=== PATIENT | female | born 1980 | race African-American/Black ===

== ENCOUNTER 2020-01-10 15:20 | Inpatient (IN) | payer MEDICAID, OTHER ==
[~2020-01-10] VITALS: Ht 172.7 cm; Wt 107.0 kg
[~2020-01-10 15:20] MED LIST: BACL20TA; FERR-63 PO; FING0.5C3; PROT40 PO; SENN8.6C5 PO; SUCR1TAB PO; WARF5TAB76; [UNRECOGNIZED DRUG - OTHER]
[2020-01-10 16:26] LABS: MEAN CORPUSCULAR HEMOGLOBIN 18.1 pg (28.0-32.0); MEAN CORPUSCULAR VOLUME 60.4 fL (81.0-99.0); PLATELET 642 x1000/uL (130-400); RED BLOOD CELL COUNT 3.04 mill/uL (4.2-5.4); RED CELL DISTRIBUTION WIDTH 24.3 % (11.6-14.6)
[2020-01-10 16:30] LABS: CHLORIDE 106 mEq/L (98-107)
[2020-01-10 16:33] LABS: HEMOGLOBIN. 5.5 g/dL (12.0-16.0); INR 1.3; PROTHROMBIN TIME 13.1 sec (9.6-11.0)
[2020-01-10 16:34] LABS: HEMATOCRIT. 18.4 % (36.0-48.0)
[2020-01-10 16:35] LABS: ETHANOL BLOOD < 10 mg/dL
[2020-01-10 16:36] LABS: TOTAL IRON BINDING CAPACITY 249 ug/dL (250-450)
[2020-01-10 16:44] LABS: HCG SCREEN NEGATIVE
[2020-01-10 16:59] LABS: PLATELET ESTIMATE INCREASED
[2020-01-10] MEDS ORDERED: HYDROCODONE/ACETAMINOPHEN 5/325MG TABLET PO ONE (17:30)
[2020-01-10] MEDS ORDERED: ONDANSETRON HCL 4MG/2ML INJ IV ONE (17:30)
[2020-01-10] MEDS ORDERED: SODIUM CHLORIDE 0.9% 1,000 ML IV ONE (17:30)
[2020-01-10] MEDS ORDERED: ONDANSETRON HCL 4MG/2ML INJ IV PRN (18:30)
[2020-01-10] MEDS ORDERED: DIPHENHYDRAMINE 50MG/ML VIAL IV PRN (18:30)
[2020-01-10] MEDS ORDERED: CLONIDINE 0.1MG TABLET PO PRN (18:30)
[2020-01-10 19:04] LABS: PHOSPHORUS 2.9 mg/dL (2.5-4.9)
[2020-01-11] VITALS (7 sets, daily range): BP systolic 117–156; BP diastolic 55–81
[2020-01-11] MEDS ORDERED: CHOL200059 PO (02:37)
[2020-01-11] MEDS ORDERED: AMIT25TA9 PO (02:37)
[2020-01-11] MEDS ORDERED: RIVA20TA PO (02:37)
[2020-01-11] MEDS ORDERED: GABA-529 PO (02:37)
[2020-01-11] MEDS: ACETAMINOPHEN 325MG TABLET PO PRN (04:57)
[2020-01-11] MEDS: FERROUS SULFATE 325MG TABLET PO SCH ×2 (09:19→12:47)
[2020-01-11 10:15] LABS: CHLORIDE 105 mEq/L (98-107)
[2020-01-11 10:16] LABS: HEMOGLOBIN. 8.7 g/dL (12.0-16.0); MEAN CORPUSCULAR HEMOGLOBIN 21.2 pg (28.0-32.0); MEAN CORPUSCULAR VOLUME 68.1 fL (81.0-99.0); PLATELET 670 x1000/uL (130-400); RED BLOOD CELL COUNT 4.11 mill/uL (4.2-5.4)
[2020-01-11] MEDS ORDERED: LIDOCAINE HCL 1% 20ML VIAL (Pyxis) INJ INFIL SCH (10:19)
[2020-01-11 10:22] LABS: LDL CHOLESTEROL 106 mg/dL (5-100)
[2020-01-11 10:24] LABS: HDL CHOLESTEROL 69 mg/dL (40-59)
[2020-01-11 11:50] LABS: NUCLEATED RED BLOOD CELLS 1 /100 WBC; PLATELET ESTIMATE INCREASED
[2020-01-11] MEDS ORDERED: BACITRACIN 15GM TUBE TOP ONE (11:54)
[2020-01-11] MEDS: PANTOPRAZOLE SODIUM 40 MG/VIAL IV SCH ×2 (13:30→21:40)
[2020-01-11] MEDS ORDERED: OXYBUTYNIN CHLORIDE 5MG TABLET PO PRN (13:30)
[2020-01-11] MEDS: SODIUM HYPOCHLORITE 0.125% 473ML SOLUTION TOP SCH (16:08)
[2020-01-11] MEDS: GILENYA 0.5 MG PO SCH (16:08)
[2020-01-11] MEDS: BACLOFEN 10MG TABLET PO SCH (16:16)
[2020-01-11] MEDS: GABAPENTIN 100MG CAPSULE PO SCH (16:16)
[2020-01-11 17:28] LABS: HAPTOGLOBIN 330 mg/dL (30-200)
[2020-01-11 17:47] LABS: FOLIC ACID (FOLATE) SERUM 7.1 ng/mL (>5.38)
[2020-01-11] MEDS: IRON SUCROSE COMPLEX 100 MG/5 ML ML IV SCH (17:52)
[2020-01-11] MEDS: AMITRIPTYLINE 25MG TABLET PO SCH (21:39)
[2020-01-11 22:02] LABS: HEMATOCRIT 29.1 % (36.0-48.0); HEMOGLOBIN 9.1 g/dL (12.0-16.0); MEAN CORPUSCULAR HEMOGLOBIN 21.5 pg (28.0-32.0); MEAN CORPUSCULAR VOLUME 68.8 fL (81.0-99.0); PLATELET 633 x1000/uL (130-400); RED BLOOD CELL COUNT 4.23 mill/uL (4.2-5.4); RED CELL DISTRIBUTION WIDTH 32.4 % (11.6-14.6)
[2020-01-12] VITALS (7 sets, daily range): BP systolic 138–177; BP diastolic 64–89
[2020-01-12] MEDS: ACETAMINOPHEN 325MG TABLET PO PRN (00:19)
[2020-01-12] MEDS: GILENYA 0.5 MG PO SCH (08:52)
[2020-01-12] MEDS: AMLODIPINE 5MG TABLET PO SCH (08:59)
[2020-01-12] MEDS: GABAPENTIN 100MG CAPSULE PO SCH ×3 (08:59→16:54)
[2020-01-12] MEDS: BACLOFEN 10MG TABLET PO SCH ×3 (08:59→16:54)
[2020-01-12] MEDS: PANTOPRAZOLE SODIUM 40 MG/VIAL IV SCH ×2 (08:59→21:11)
[2020-01-12] MEDS: SODIUM HYPOCHLORITE 0.125% 473ML SOLUTION TOP SCH (08:59)
[2020-01-12] MEDS: IRON SUCROSE COMPLEX 100 MG/5 ML ML IV SCH (16:53)
[2020-01-12] MEDS: DOCUSATE SODIUM 250MG CAPSULE PO SCH (16:54)
[2020-01-12] MEDS ORDERED: DOCUSATE SODIUM 100MG CAPSULE PO SCH (17:00)
[2020-01-12] MEDS: AMITRIPTYLINE 25MG TABLET PO SCH (21:11)
[2020-01-13] VITALS: BP 141/71
[2020-01-13 04:00] VITALS: BP 140/69
[2020-01-13] MEDS ORDERED: POTASSIUM CHLORIDE 20MEQ TABLET SR PO SCH (07:00)
[2020-01-13] MEDS ORDERED: DEXT 5%/0.9% NACL 1,000 ML IV SCH (07:00)
[2020-01-13 07:21] LABS: HEMATOCRIT. 29.5 % (36.0-48.0); HEMOGLOBIN. 9.4 g/dL (12.0-16.0); MEAN CORPUSCULAR HEMOGLOBIN 22.1 pg (28.0-32.0); MEAN CORPUSCULAR VOLUME 69.6 fL (81.0-99.0); MEAN PLATELET VOLUME 8.4 fl (7.4-10.4); PLATELET 637 x1000/uL (130-400); RED BLOOD CELL COUNT 4.24 mill/uL (4.2-5.4); RED CELL DISTRIBUTION WIDTH 32.3 % (11.6-14.6)
[2020-01-13 07:30] LABS: CHLORIDE 103 mEq/L (98-107)
[2020-01-13 08:00] VITALS: BP 168/74
[2020-01-13] MEDS: GILENYA 0.5 MG PO SCH (09:00)
[2020-01-13] MEDS: GABAPENTIN 100MG CAPSULE PO SCH ×2 (09:17→14:24)
[2020-01-13] MEDS: PANTOPRAZOLE SODIUM 40 MG/VIAL IV SCH (09:17)
[2020-01-13] MEDS: DOCUSATE SODIUM 250MG CAPSULE PO SCH (09:17)
[2020-01-13] MEDS: SODIUM HYPOCHLORITE 0.125% 473ML SOLUTION TOP SCH (09:18)
[2020-01-13] MEDS: BACLOFEN 10MG TABLET PO SCH ×2 (09:18→14:23)
[2020-01-13] MEDS: AMLODIPINE 5MG TABLET PO SCH (09:18)
[2020-01-13 12:00] VITALS: BP 156/73
[2020-01-13] MEDS ORDERED: AMLO10TA80 MT (12:28)
[2020-01-13 12:32] LABS: NUCLEATED RED BLOOD CELLS 2 /100 WBC
[2020-01-13 12:33] LABS: PLATELET ESTIMATE INCREASED
[2020-01-13 14:33] VITALS: BP 145/70
[2020-01-13] MEDS ORDERED: FAMOTIDINE 20MG/2ML VIAL IV SCH (21:00)
== END 2020-01-13 15:15 | disposition home or self-care (01) | DRG 532 ==
LOC: ER 15:20 → 5WST 17:10 → EDBEDREQTM 17:13 → EDBEDREQ 17:13 → ENRESERV 21:08
PROVIDERS: ADMIT Internal Medicine; ATTEND Internal Medicine
PROC: 30233N1 Transfusion of Nonautologous Red Blood Cells into Peripheral Vein, Percutaneous Approach (ICD-10-PCS; 2020-01-10)
PROC: 0HDRXZZ Extraction of Toe Nail, External Approach (ICD-10-PCS; principal; 2020-01-11)
PROC: 0HDRXZZ Extraction of Toe Nail, External Approach (ICD-10-PCS; 2020-01-11)
DX: N93.9 Abnormal uterine and vaginal bleeding, unspecified (principal); L03.032 Cellulitis of left toe; L03.031 Cellulitis of right toe; I10 Essential (primary) hypertension; D50.0 Iron deficiency anemia secondary to blood loss (chronic); E46 Unspecified protein-calorie malnutrition; L89.154 Pressure ulcer of sacral region, stage 4; G35 Multiple sclerosis; L60.0 Ingrowing nail; D47.3 Essential (hemorrhagic) thrombocythemia; D25.9 Leiomyoma of uterus, unspecified; Z20.828 Contact with and (suspected) exposure to other viral communicable diseases; E88.09 Other disorders of plasma-protein metabolism, not elsewhere classified; N83.201 Unspecified ovarian cyst, right side; D72.810 Lymphocytopenia; Z86.711 Personal history of pulmonary embolism; Z79.899 Other long term (current) drug therapy; Z88.6 Allergy status to analgesic agent; Z79.01 Long term (current) use of anticoagulants; Z68.35 Body mass index [BMI] 35.0-35.9, adult
CPT/HCPCS: 36415; 71045; 76830; 76856; 80048; 80053; 80061; 80320; 82040; 82270; 82607; 82728; 82746; 83010; 83540; 83550; 83615; 83735; 83880; 84100; 84134; 84145; 84443; 84484; 84703; 85025; 85027; 85044; 86850; 86900; 86920; 87426; 93005; 93970; 99291; C9113; J2405; J3490; J7030; J7042; P9016; G0480

== ENCOUNTER 2020-02-23 00:52 | Emergency (ER) | payer MEDICAID ==
[~2020-02-23] VITALS: Ht 165.1 cm; Wt 113.0 kg
[~2020-02-23 00:52] MED LIST changes: +AMIT25TA9 PO; +AMLO10TA80 MT; +CHOL200059 PO; +GABA-529 PO; +RIVA20TA PO; -WARF5TAB76
[2020-02-23 05:12] VITALS: BP 121/56
== END 2020-02-23 05:13 | disposition home or self-care (01) ==
LOC: ER 00:52
DX: T40.7X1A Poisoning by cannabis (derivatives), accidental (unintentional), initial encounter (principal); Y92.9 Unspecified place or not applicable; Z86.711 Personal history of pulmonary embolism; G35 Multiple sclerosis; Z88.6 Allergy status to analgesic agent; Z93.3 Colostomy status
CPT/HCPCS: 82962; 93005; 99283; Z7610

== ENCOUNTER 2020-06-11 06:45 | Inpatient (IN) | payer MEDICAID ==
[~2020-06-11] VITALS: Ht 167.6 cm; Wt 100.2 kg
[2020-06-11] MEDS ORDERED: PIPERACILLIN/TAZ 3.375G PREMIX 50 ML IV ONE (07:00)
[2020-06-11] MEDS ORDERED: SODIUM CHLORIDE 0.9% 1,000 ML IV ONE (07:00)
[2020-06-11] MEDS ORDERED: VANCOMYCIN 1 G PREMIX 200 ML IV ONE (07:00)
[2020-06-11 08:03] LABS: CHLORIDE 87 mEq/L (98-107); CLARITY URINE CLOUDY (CLEAR); COLOR URINE DARK YELLOW (YELLOW); HEMATOCRIT. 27.8 % (36.0-48.0); HEMOGLOBIN. 8.5 g/dL (12.0-16.0); KETONES URINE TRACE (NEGATIVE); LEUKOCYTE ESTERASE URINE 2+ (NEGATIVE); MEAN CORPUSCULAR VOLUME 68.9 fL (81.0-99.0); MEAN PLATELET VOLUME 8.2 fl (7.4-10.4); NITRITE URINE NEGATIVE (NEGATIVE); OCCULT BLOOD URINE TRACE (NEGATIVE); PLATELET 578 x1000/uL (130-400); PROTEIN URINE 2+ (NEGATIVE); RED BLOOD CELL COUNT 4.04 mill/uL (4.2-5.4); RED CELL DISTRIBUTION WIDTH 28.6 % (11.6-14.6); SPECIFIC GRAVITY URINE 1.024 (1.005-1.030)
[2020-06-11 08:57] LABS: INR 1.2; PROTHROMBIN TIME 12.4 sec (9.6-11.0)
[2020-06-11 10:59] LABS: PLATELET ESTIMATE INCREASED
[2020-06-11 14:00] VITALS: BP 106/81
[2020-06-11] MEDS ORDERED: MAGNESIUM/ALUMINUM HYDROXIDE/SIMETHICONE 30ML UDC PO PRN (14:15)
[2020-06-11] MEDS ORDERED: KETOROLAC 15MG/ML VIAL IV PRN (14:15)
[2020-06-11] MEDS ORDERED: IPRATROPIUM/ALBUTEROL 0.5-3(2.5)MG/3ML NEB NEB PRN (14:15)
[2020-06-11] MEDS ORDERED: DOCUSATE SODIUM 100MG CAPSULE PO PRN (14:15)
[2020-06-11] MEDS ORDERED: GUAIFENESIN 200MG/10ML SUGAR FREE UDC PO PRN (14:15)
[2020-06-11] MEDS ORDERED: PIPERACILLIN/TAZ 3.375G PREMIX 50 ML IV SCH (14:15)
[2020-06-11] MEDS ORDERED: TRAMADOL 50MG TABLET PO PRN (14:15)
[2020-06-11] MEDS: DEXT 5%/0.45% NACL 1000ML 1,000 ML IV SCH (14:15)
[2020-06-11] MEDS ORDERED: ACETAMINOPHEN 325MG TABLET PO PRN (14:15)
[2020-06-11] MEDS ORDERED: NITROGLYCERIN 0.4MG TABLET SL SL PRN (14:15)
[2020-06-11] MEDS ORDERED: CLONIDINE 0.1MG TABLET PO PRN (14:15)
[2020-06-11] MEDS ORDERED: ONDANSETRON HCL 4MG/2ML INJ IV PRN (14:15)
[2020-06-11 16:00] VITALS: BP 111/61
[2020-06-11 16:31] LABS: FOLIC ACID (FOLATE) SERUM >20 ng/mL ng/mL (>5.38)
[2020-06-11 16:43] LABS: VITAMIN B12 SERUM >2000 pg/mL pg/mL (211-911)
[2020-06-11] MEDS: VANCOMYCIN 750 MG PREMIX 150 ML IV SCH (17:46)
[2020-06-11] MEDS: PIPERACILLIN/TAZOBACTAM 3.375 G in DEXT 5% WATER 100 ML IV SCH ×2 (17:46→21:41)
[2020-06-11] MEDS: ENOXAPARIN 30MG/0.3ML SYR SUBCUT SCH (17:55)
[2020-06-11 18:00] VITALS: BP 110/69
[2020-06-11 18:14] VITALS: BP 106/81
[2020-06-11 20:00] VITALS: BP 125/70
[2020-06-11] MEDS: ASCORBIC ACID 500 MG TABLET PO SCH (21:36)
[2020-06-11] MEDS: FAMOTIDINE 20MG TABLET PO SCH (21:37)
[2020-06-11 22:00] VITALS: BP 124/82
[2020-06-12] VITALS (12 sets, daily range): BP systolic 109–132; BP diastolic 61–86
[2020-06-12] MEDS: VANCOMYCIN 750 MG PREMIX 150 ML IV SCH ×2 (00:27→08:29)
[2020-06-12] MEDS: DEXT 5%/0.45% NACL 1000ML 1,000 ML IV SCH ×3 (00:27→21:03)
[2020-06-12 01:27] LABS: CREATINE KINASE 21 IU/L (26-192)
[2020-06-12 01:28] LABS: CREATINE KINASE MB FRACTION < 1.0 ng/mL (0.5-3.6)
[2020-06-12] MEDS: PIPERACILLIN/TAZOBACTAM 3.375 G in DEXT 5% WATER 100 ML IV SCH ×4 (04:00→22:29)
[2020-06-12] MEDS: ENOXAPARIN 30MG/0.3ML SYR SUBCUT SCH ×2 (06:00→18:19)
[2020-06-12 07:24] LABS: HEMATOCRIT. 25.5 % (36.0-48.0); HEMOGLOBIN. 7.8 g/dL (12.0-16.0); MEAN CORPUSCULAR HEMOGLOBIN 21.2 pg (28.0-32.0); MEAN CORPUSCULAR VOLUME 69.3 fL (81.0-99.0); PLATELET 501 x1000/uL (130-400); RED BLOOD CELL COUNT 3.69 mill/uL (4.2-5.4); RED CELL DISTRIBUTION WIDTH 28.9 % (11.6-14.6)
[2020-06-12 07:29] LABS: CHLORIDE 90 mEq/L (98-107)
[2020-06-12 07:37] LABS: CREATINE KINASE 28 IU/L (26-192)
[2020-06-12 07:40] LABS: CREATINE KINASE MB FRACTION < 1.0 ng/mL (0.5-3.6)
[2020-06-12] MEDS: FAMOTIDINE 20MG TABLET PO SCH ×2 (08:30→21:04)
[2020-06-12] MEDS: ZINC SULFATE 220 MG ( 50 ) CAPSULE PO SCH (08:30)
[2020-06-12] MEDS: ASCORBIC ACID 500 MG TABLET PO SCH ×2 (08:30→21:03)
[2020-06-12 09:09] LABS: *AMPHETAMINES SCREEN URINE NEGATIVE (NEGATIVE); *BARBITURATES SCREEN URINE NEGATIVE (NEGATIVE); *BENZODIAZEPINES SCREEN URINE NEGATIVE (NEGATIVE)
[2020-06-12 09:10] LABS: *COCAINE SCREEN URINE NEGATIVE (NEGATIVE); CANNABINOID URINE SCREEN NEGATIVE (NEGATIVE); METHADONE URINE SCREEN NEGATIVE (NEGATIVE); OPIATES URINE SCREEN NEGATIVE (NEGATIVE); PHENCYCLIDINE URINE SCREEN NEGATIVE (NEGATIVE)
[2020-06-12] MEDS ORDERED: FLUCONAZOLE 200MG/100ML PREMIX IV ONE (10:15)
[2020-06-12] MEDS ORDERED: FLUCONAZOLE 200 MG/100ML BAG 100 MG in CONTAINER,EMPTY 0 BAG IV SCH (13:00)
[2020-06-12] MEDS: SODIUM HYPOCHLORITE 0.125% 473ML SOLUTION TOP SCH (13:08)
[2020-06-12] MEDS: FLUCONAZOLE 200 MG/100ML BAG 100 ML IV SCH (13:09)
[2020-06-12 13:20] LABS: PLATELET ESTIMATE INCREASED
[2020-06-13] VITALS (14 sets, daily range): BP systolic 98–129; BP diastolic 64–84
[2020-06-13] MEDS: LORAZEPAM 0.5MG TABLET PO PRN ×2 (00:40→21:26)
[2020-06-13] MEDS: PIPERACILLIN/TAZOBACTAM 3.375 G in DEXT 5% WATER 100 ML IV SCH ×4 (04:13→21:25)
[2020-06-13] MEDS: DEXT 5%/0.45% NACL 1000ML 1,000 ML IV SCH ×3 (06:46→21:27)
[2020-06-13] MEDS: ZINC SULFATE 220 MG ( 50 ) CAPSULE PO SCH (09:09)
[2020-06-13] MEDS: VANCOMYCIN 750 MG PREMIX 150 ML IV SCH (09:09)
[2020-06-13] MEDS: ASCORBIC ACID 500 MG TABLET PO SCH ×2 (09:10→21:27)
[2020-06-13] MEDS: ENOXAPARIN 40MG/0.4ML SYR SUBCUT SCH (09:10)
[2020-06-13] MEDS: SODIUM HYPOCHLORITE 0.125% 473ML SOLUTION TOP SCH (09:11)
[2020-06-13] MEDS: FAMOTIDINE 20MG TABLET PO SCH ×2 (09:12→21:26)
[2020-06-13] MEDS: FLUCONAZOLE 200 MG/100ML BAG 100 ML IV SCH (13:44)
[2020-06-13] MEDS: ZOLPIDEM TARTRATE 5MG TABLET PO PRN (21:26)
[2020-06-14] VITALS (12 sets, daily range): BP systolic 91–106; BP diastolic 50–74
[2020-06-14] MEDS: VANCOMYCIN 750 MG PREMIX 150 ML IV SCH ×2 (03:12→21:52)
[2020-06-14] MEDS: PIPERACILLIN/TAZOBACTAM 3.375 G in DEXT 5% WATER 100 ML IV SCH ×4 (04:54→21:52)
[2020-06-14] MEDS: ASCORBIC ACID 500 MG TABLET PO SCH ×2 (09:48→21:52)
[2020-06-14] MEDS: FAMOTIDINE 20MG TABLET PO SCH ×2 (09:48→21:52)
[2020-06-14] MEDS: ENOXAPARIN 40MG/0.4ML SYR SUBCUT SCH (09:48)
[2020-06-14] MEDS: ZINC SULFATE 220 MG ( 50 ) CAPSULE PO SCH (09:48)
[2020-06-14] MEDS: SODIUM HYPOCHLORITE 0.125% 473ML SOLUTION TOP SCH (10:14)
[2020-06-14] MEDS: DEXT 5%/0.45% NACL 1000ML 1,000 ML IV SCH ×2 (13:44→21:52)
[2020-06-14] MEDS: FLUCONAZOLE 200 MG/100ML BAG 100 ML IV SCH (13:44)
[2020-06-15] VITALS (12 sets, daily range): BP systolic 91–114; BP diastolic 32–90
[2020-06-15] MEDS: PIPERACILLIN/TAZOBACTAM 3.375 G in DEXT 5% WATER 100 ML IV SCH ×4 (04:51→21:48)
[2020-06-15 07:47] LABS: CHLORIDE 91 mEq/L (98-107)
[2020-06-15] MEDS: DEXT 5%/0.45% NACL 1000ML 1,000 ML IV SCH ×2 (08:15→18:15)
[2020-06-15] MEDS ORDERED: POTASSIUM CHLORIDE 20MEQ TABLET SR PO SCH (09:00)
[2020-06-15] MEDS: ASCORBIC ACID 500 MG TABLET PO SCH ×2 (09:09→21:48)
[2020-06-15] MEDS: FAMOTIDINE 20MG TABLET PO SCH ×2 (09:09→21:48)
[2020-06-15] MEDS: ZINC SULFATE 220 MG ( 50 ) CAPSULE PO SCH (09:09)
[2020-06-15] MEDS: ENOXAPARIN 40MG/0.4ML SYR SUBCUT SCH (09:10)
[2020-06-15] MEDS: SODIUM HYPOCHLORITE 0.125% 473ML SOLUTION TOP SCH (09:17)
[2020-06-15] MEDS: FLUCONAZOLE 200 MG/100ML BAG 100 ML IV SCH (15:33)
[2020-06-15] MEDS ORDERED: IOHEXOL-300 100 ML BOTTLE ONE (19:37)
[2020-06-15] MEDS: ENOXAPARIN 100MG/ML SYR SUBCUT SCH (21:47)
[2020-06-16] VITALS (13 sets, daily range): BP systolic 92–113; BP diastolic 36–78
[2020-06-16 03:34] LABS: HCG SCREEN NEGATIVE
[2020-06-16] MEDS: DEXT 5%/0.45% NACL 1000ML 1,000 ML IV SCH ×2 (03:59→14:20)
[2020-06-16] MEDS: PIPERACILLIN/TAZOBACTAM 3.375 G in DEXT 5% WATER 100 ML IV SCH ×2 (04:00→11:24)
[2020-06-16] MEDS: ZOLPIDEM TARTRATE 5MG TABLET PO PRN (06:49)
[2020-06-16 08:36] LABS: HEMATOCRIT. 22.4 % (36.0-48.0); HEMOGLOBIN. 7.1 g/dL (12.0-16.0); MEAN CORPUSCULAR HEMOGLOBIN 21.6 pg (28.0-32.0); MEAN CORPUSCULAR VOLUME 68.1 fL (81.0-99.0); MEAN PLATELET VOLUME 8.2 fl (7.4-10.4); PLATELET 295 x1000/uL (130-400); RED BLOOD CELL COUNT 3.29 mill/uL (4.2-5.4); RED CELL DISTRIBUTION WIDTH 29.7 % (11.6-14.6)
[2020-06-16] MEDS: SODIUM HYPOCHLORITE 0.125% 473ML SOLUTION TOP SCH (09:00)
[2020-06-16 09:01] LABS: CHLORIDE 92 mEq/L (98-107)
[2020-06-16 09:07] LABS: PHOSPHORUS 2.4 mg/dL (2.5-4.9)
[2020-06-16] MEDS: ASCORBIC ACID 500 MG TABLET PO SCH ×2 (09:14→20:14)
[2020-06-16] MEDS: FAMOTIDINE 20MG TABLET PO SCH ×2 (09:14→20:14)
[2020-06-16] MEDS: ZINC SULFATE 220 MG ( 50 ) CAPSULE PO SCH (09:14)
[2020-06-16] MEDS: ENOXAPARIN 100MG/ML SYR SUBCUT SCH ×2 (09:15→20:14)
[2020-06-16 12:30] LABS: NUCLEATED RED BLOOD CELLS 1 /100 WBC; PLATELET ESTIMATE NORMAL
[2020-06-16] MEDS: FLUCONAZOLE 200 MG/100ML BAG 100 ML IV SCH (14:20)
[2020-06-16] MEDS: PANTOPRAZOLE SODIUM 40 MG/VIAL IV SCH (17:44)
[2020-06-16] MEDS: SUCRALFATE 1 G/10 ML UDC PO SCH ×2 (17:44→20:14)
[2020-06-17] VITALS (15 sets, daily range): BP systolic 83–139; BP diastolic 55–111
[2020-06-17] MEDS: DEXT 5%/0.45% NACL 1000ML 1,000 ML IV SCH ×3 (00:21→21:16)
[2020-06-17 05:35] LABS: CHLORIDE 96 mEq/L (98-107)
[2020-06-17 05:46] LABS: PHOSPHORUS 2.4 mg/dL (2.5-4.9); TOTAL IRON BINDING CAPACITY 20 ug/dL (250-450)
[2020-06-17 06:17] LABS: VITAMIN B12 SERUM > 2000.0 pg/mL (211-911)
[2020-06-17] MEDS: SUCRALFATE 1 G/10 ML UDC PO SCH ×4 (06:31→21:15)
[2020-06-17 06:46] LABS: FERRITIN 563 ng/mL (10-291)
[2020-06-17 06:50] LABS: MEAN CORPUSCULAR HEMOGLOBIN 21.5 pg (28.0-32.0); MEAN CORPUSCULAR VOLUME 69.1 fL (81.0-99.0); MEAN PLATELET VOLUME 8.4 fl (7.4-10.4); PLATELET 268 x1000/uL (130-400); RED BLOOD CELL COUNT 3.26 mill/uL (4.2-5.4); RED CELL DISTRIBUTION WIDTH 29.4 % (11.6-14.6)
[2020-06-17 06:58] LABS: HEMATOCRIT. 22.5 % (36.0-48.0)
[2020-06-17] MEDS ORDERED: POTASSIUM CHLORIDE 20MEQ/PACKET PO NR (07:00)
[2020-06-17] MEDS ORDERED: KCL 20MEQ/100ML PREMIX 100 ML IV NR (08:00)
[2020-06-17] MEDS: PANTOPRAZOLE SODIUM 40 MG/VIAL IV SCH ×2 (08:02→17:42)
[2020-06-17] MEDS: ENOXAPARIN 100MG/ML SYR SUBCUT SCH ×2 (08:03→21:16)
[2020-06-17] MEDS: ASCORBIC ACID 500 MG TABLET PO SCH ×2 (08:04→21:15)
[2020-06-17] MEDS: FAMOTIDINE 20MG TABLET PO SCH (08:04)
[2020-06-17] MEDS: ZINC SULFATE 220 MG ( 50 ) CAPSULE PO SCH (08:04)
[2020-06-17] MEDS: ACETAMINOPHEN 325MG TABLET PO PRN (08:05)
[2020-06-17] MEDS: SODIUM HYPOCHLORITE 0.125% 473ML SOLUTION TOP SCH (09:00)
[2020-06-17] MEDS ORDERED: POTASSIUM PHOS,M-BASIC-D-BASIC 30 MMOL in DEXT 5% WATER 500 ML IV NR (10:00)
[2020-06-17] MEDS: ZOLPIDEM TARTRATE 5MG TABLET PO PRN (11:49)
[2020-06-17] MEDS: METOCLOPRAMIDE HCL 10MG/2ML VIAL IV SCH ×2 (11:50→18:33)
[2020-06-17 15:59] LABS: PLATELET ESTIMATE NORMAL
[2020-06-17] MEDS ORDERED: VANCOMYCIN 750 MG PREMIX 150 ML IV SCH (17:00)
[2020-06-17] MEDS: PIPERACILLIN/TAZOBACTAM 3.375 G in DEXT 5% WATER 100 ML IV SCH ×2 (17:33→21:35)
[2020-06-17 21:56] LABS: HEMATOCRIT 31.1 % (36.0-48.0); HEMOGLOBIN 9.8 g/dL (12.0-16.0)
[2020-06-18] VITALS (34 sets, daily range): BP systolic 70–116; BP diastolic 33–76
[2020-06-18] MEDS: METOCLOPRAMIDE HCL 10MG/2ML VIAL IV SCH ×5 (00:09→23:53)
[2020-06-18] MEDS: PIPERACILLIN/TAZOBACTAM 3.375 G in DEXT 5% WATER 100 ML IV SCH ×2 (04:16→10:07)
[2020-06-18] MEDS: DEXT 5%/0.45% NACL 1000ML 1,000 ML IV SCH (05:34)
[2020-06-18 06:37] LABS: HEMATOCRIT. 30.7 % (36.0-48.0); HEMOGLOBIN. 10.4 g/dL (12.0-16.0); MEAN CORPUSCULAR HEMOGLOBIN 25.2 pg (28.0-32.0); MEAN CORPUSCULAR VOLUME 74.6 fL (81.0-99.0); MEAN PLATELET VOLUME 8.3 fl (7.4-10.4); PLATELET 196 x1000/uL (130-400); RED BLOOD CELL COUNT 4.12 mill/uL (4.2-5.4); RED CELL DISTRIBUTION WIDTH 29.9 % (11.6-14.6)
[2020-06-18 06:44] LABS: CHLORIDE 92 mEq/L (98-107)
[2020-06-18 06:50] LABS: PHOSPHORUS 5.1 mg/dL (2.5-4.9)
[2020-06-18] MEDS: PANTOPRAZOLE SODIUM 40 MG/VIAL IV SCH ×2 (10:07→17:52)
[2020-06-18] MEDS: ENOXAPARIN 100MG/ML SYR SUBCUT SCH ×2 (10:07→21:09)
[2020-06-18] MEDS: SUCRALFATE 1 G/10 ML UDC PO SCH ×4 (10:07→21:09)
[2020-06-18] MEDS: ZINC SULFATE 220 MG ( 50 ) CAPSULE PO SCH (10:07)
[2020-06-18] MEDS: ASCORBIC ACID 500 MG TABLET PO SCH ×2 (10:07→21:09)
[2020-06-18] MEDS: SODIUM HYPOCHLORITE 0.125% 473ML SOLUTION TOP SCH (10:09)
[2020-06-18] MEDS ORDERED: IOHEXOL-350 100 ML BOTTLE ONE (10:18)
[2020-06-18 10:51] LABS: BG BASE EXCESS -7.9 mmol/L (-2.0-2.0); BG CARBOXYHEMOGLOBIN 0.2 % (0.5-1.5); BG DEOXYHEMOGLOBIN 1.1 % (0.0-5.0); BG FRACTION INSPIRED OXYGEN 21; BG METHEMOGLOBIN 0.5 % (0.0-1.5); BG OXYGEN SATURATION 98.9 % (92.0-98.5); BG OXYHEMOGLOBIN 98.2 % (94.0-97.0); BG PCO2 23.5 mmHg (35.0-45.0); BG PH 7.423 (7.350-7.450); BG PO2 151.3 mmHg (75.0-100.0); BG SAMPLE SITE RIGHT RADIAL; BG TOTAL HEMOGLOBIN 10.5 g/dL (12.0-18.0); BG VENT MODE ROOM AIR
[2020-06-18 12:24] LABS: PLATELET ESTIMATE NORMAL
[2020-06-18] MEDS: MIDODRINE HCL 5MG TABLET PO SCH ×2 (14:04→17:54)
[2020-06-18] MEDS: SODIUM CHLORIDE 0.9% 1,000 ML IV SCH (17:51)
[2020-06-18] MEDS: CEFEPIME 2,000 MG in DEXT 5% WATER 100 ML IV SCH (17:52)
[2020-06-18] MEDS: METRONIDAZOLE 500 MG PREMIX 100 ML IV SCH ×2 (17:54→21:09)
[2020-06-18] MEDS: VANCOMYCIN HCL 1000 MG/20 ML ORAL PO SCH ×2 (19:11→23:48)
[2020-06-19] VITALS (11 sets, daily range): BP systolic 90–103; BP diastolic 43–72
[2020-06-19] MEDS: DEXT 5%/0.45% NACL 1000ML 1,000 ML IV SCH (02:15)
[2020-06-19] MEDS: CEFEPIME 2,000 MG in DEXT 5% WATER 100 ML IV SCH ×2 (04:20→18:36)
[2020-06-19] MEDS: VANCOMYCIN HCL 1000 MG/20 ML ORAL PO SCH ×4 (05:11→23:12)
[2020-06-19] MEDS: METRONIDAZOLE 500 MG PREMIX 100 ML IV SCH ×3 (05:27→21:00)
[2020-06-19] MEDS: METOCLOPRAMIDE HCL 10MG/2ML VIAL IV SCH ×4 (05:28→23:13)
[2020-06-19 07:25] LABS: HEMATOCRIT. 27.1 % (36.0-48.0); HEMOGLOBIN. 8.9 g/dL (12.0-16.0); MEAN CORPUSCULAR HEMOGLOBIN 24.6 pg (28.0-32.0); MEAN CORPUSCULAR VOLUME 74.8 fL (81.0-99.0); MEAN PLATELET VOLUME 8.3 fl (7.4-10.4); PLATELET 157 x1000/uL (130-400); RED BLOOD CELL COUNT 3.63 mill/uL (4.2-5.4); RED CELL DISTRIBUTION WIDTH 29.1 % (11.6-14.6)
[2020-06-19 07:27] LABS: CHLORIDE 94 mEq/L (98-107)
[2020-06-19] MEDS: ZINC SULFATE 220 MG ( 50 ) CAPSULE PO SCH (09:20)
[2020-06-19] MEDS: SUCRALFATE 1 G/10 ML UDC PO SCH ×4 (09:20→20:33)
[2020-06-19] MEDS: ASCORBIC ACID 500 MG TABLET PO SCH ×2 (09:20→20:34)
[2020-06-19] MEDS: PANTOPRAZOLE SODIUM 40 MG/VIAL IV SCH ×2 (09:20→18:36)
[2020-06-19] MEDS: ENOXAPARIN 100MG/ML SYR SUBCUT SCH ×2 (09:20→20:33)
[2020-06-19] MEDS: MIDODRINE HCL 5MG TABLET PO SCH ×3 (09:21→18:36)
[2020-06-19] MEDS: SODIUM HYPOCHLORITE 0.125% 473ML SOLUTION TOP SCH (09:21)
[2020-06-19] MEDS: SODIUM CHLORIDE 0.9% 1,000 ML IV SCH (11:30)
[2020-06-19] MEDS ORDERED: VANCOMYCIN 1250MG in DEXTROSE 5% WATER 250ML IV SCH ×2 (13:00→18:00)
[2020-06-19] MEDS: PHENOL/SODIUM PHENOLATE 1.4% SRPAY 177ML MM SCH ×3 (18:00→23:12)
[2020-06-19] MEDS: ACETAMINOPHEN 325MG TABLET PO PRN (18:38)
[2020-06-19 19:20] LABS: PLATELET ESTIMATE NORMAL
[2020-06-19] MEDS: ZOLPIDEM TARTRATE 5MG TABLET PO PRN (20:45)
[2020-06-20] VITALS (12 sets, daily range): BP systolic 79–96; BP diastolic 36–62
[2020-06-20] MEDS: CEFEPIME 2,000 MG in DEXT 5% WATER 100 ML IV SCH ×2 (05:37→18:51)
[2020-06-20] MEDS: PHENOL/SODIUM PHENOLATE 1.4% SRPAY 177ML MM SCH ×4 (05:53→23:52)
[2020-06-20] MEDS: VANCOMYCIN HCL 1000 MG/20 ML ORAL PO SCH ×4 (05:53→23:52)
[2020-06-20] MEDS: METOCLOPRAMIDE HCL 10MG/2ML VIAL IV SCH ×4 (05:55→23:52)
[2020-06-20] MEDS: METRONIDAZOLE 500 MG PREMIX 100 ML IV SCH ×3 (06:02→21:51)
[2020-06-20] MEDS: SUCRALFATE 1 G/10 ML UDC PO SCH ×4 (09:12→21:40)
[2020-06-20] MEDS: ASCORBIC ACID 500 MG TABLET PO SCH ×2 (09:12→21:40)
[2020-06-20] MEDS: PANTOPRAZOLE SODIUM 40 MG/VIAL IV SCH ×2 (09:12→18:50)
[2020-06-20] MEDS: MIDODRINE HCL 5MG TABLET PO SCH ×3 (09:13→18:51)
[2020-06-20] MEDS: ENOXAPARIN 100MG/ML SYR SUBCUT SCH ×2 (09:14→21:40)
[2020-06-20] MEDS: SODIUM HYPOCHLORITE 0.125% 473ML SOLUTION TOP SCH (09:14)
[2020-06-20] MEDS: SODIUM CHLORIDE 0.9% 1,000 ML IV SCH (09:14)
[2020-06-20] MEDS: ZINC SULFATE 220 MG ( 50 ) CAPSULE PO SCH (09:49)
[2020-06-20] MEDS ORDERED: POTASSIUM CHLORIDE 20MEQ/PACKET PO SCH (11:00)
[2020-06-20] MEDS ORDERED: KCL 20MEQ/100ML PREMIX 100 ML IV SCH (12:00)
[2020-06-20 17:55] LABS: HEMATOCRIT. 28.5 % (36.0-48.0); HEMOGLOBIN. 9.2 g/dL (12.0-16.0); MEAN CORPUSCULAR HEMOGLOBIN 24.9 pg (28.0-32.0); MEAN CORPUSCULAR VOLUME 77.2 fL (81.0-99.0); MEAN PLATELET VOLUME 8.3 fl (7.4-10.4); PLATELET 138 x1000/uL (130-400); RED CELL DISTRIBUTION WIDTH 29.1 % (11.6-14.6)
[2020-06-20 18:11] LABS: CHLORIDE 97 mEq/L (98-107)
[2020-06-20] MEDS: FLUCONAZOLE 100MG TABLET PO SCH (18:51)
[2020-06-20 19:04] LABS: PLATELET ESTIMATE NORMAL
[2020-06-21] VITALS (12 sets, daily range): BP systolic 79–105; BP diastolic 50–69
[2020-06-21] MEDS: SODIUM CHLORIDE 0.9% 1,000 ML IV SCH (03:01)
[2020-06-21] MEDS: CEFEPIME 2,000 MG in DEXT 5% WATER 100 ML IV SCH ×2 (04:50→17:50)
[2020-06-21] MEDS: PHENOL/SODIUM PHENOLATE 1.4% SRPAY 177ML MM SCH ×3 (06:40→17:30)
[2020-06-21] MEDS: VANCOMYCIN HCL 1000 MG/20 ML ORAL PO SCH ×3 (06:40→18:08)
[2020-06-21] MEDS: METRONIDAZOLE 500 MG PREMIX 100 ML IV SCH ×3 (06:41→21:06)
[2020-06-21] MEDS: METOCLOPRAMIDE HCL 10MG/2ML VIAL IV SCH ×3 (06:42→17:52)
[2020-06-21 07:41] LABS: CHLORIDE 100 mEq/L (98-107)
[2020-06-21] MEDS: PANTOPRAZOLE SODIUM 40 MG/VIAL IV SCH ×2 (10:28→17:52)
[2020-06-21] MEDS: FLUCONAZOLE 100MG TABLET PO SCH (10:32)
[2020-06-21] MEDS: MIDODRINE HCL 5MG TABLET PO SCH ×3 (10:32→21:07)
[2020-06-21] MEDS: ENOXAPARIN 100MG/ML SYR SUBCUT SCH ×2 (10:33→20:56)
[2020-06-21] MEDS: ASCORBIC ACID 500 MG TABLET PO SCH ×2 (10:34→20:55)
[2020-06-21] MEDS: SODIUM HYPOCHLORITE 0.125% 473ML SOLUTION TOP SCH (10:35)
[2020-06-21] MEDS: ZINC SULFATE 220 MG ( 50 ) CAPSULE PO SCH (10:47)
[2020-06-21] MEDS: SUCRALFATE 1 G/10 ML UDC PO SCH ×4 (10:47→20:55)
[2020-06-21 13:06] LABS: HEMATOCRIT. 25.9 % (36.0-48.0); HEMOGLOBIN. 8.3 g/dL (12.0-16.0); MEAN CORPUSCULAR HEMOGLOBIN 24.9 pg (28.0-32.0); MEAN CORPUSCULAR VOLUME 77.8 fL (81.0-99.0); MEAN PLATELET VOLUME 8.5 fl (7.4-10.4); PLATELET 148 x1000/uL (130-400); RED BLOOD CELL COUNT 3.32 mill/uL (4.2-5.4); RED CELL DISTRIBUTION WIDTH 29.2 % (11.6-14.6)
[2020-06-21 22:04] LABS: PLATELET ESTIMATE NORMAL
[2020-06-22] VITALS (12 sets, daily range): BP systolic 81–114; BP diastolic 54–80
[2020-06-22] MEDS: METOCLOPRAMIDE HCL 10MG/2ML VIAL IV SCH ×5 (00:26→23:21)
[2020-06-22] MEDS: SODIUM CHLORIDE 0.9% 1,000 ML IV SCH ×2 (00:26→18:41)
[2020-06-22] MEDS: VANCOMYCIN HCL 1000 MG/20 ML ORAL PO SCH ×5 (00:27→23:22)
[2020-06-22] MEDS: CEFEPIME 2,000 MG in DEXT 5% WATER 100 ML IV SCH ×2 (04:39→18:27)
[2020-06-22] MEDS: METRONIDAZOLE 500 MG PREMIX 100 ML IV SCH ×3 (05:05→21:51)
[2020-06-22] MEDS: PHENOL/SODIUM PHENOLATE 1.4% SRPAY 177ML MM SCH ×5 (05:06→23:22)
[2020-06-22] MEDS: MIDODRINE HCL 5MG TABLET PO SCH ×3 (05:06→21:51)
[2020-06-22] MEDS: ENOXAPARIN 100MG/ML SYR SUBCUT SCH (08:19)
[2020-06-22] MEDS: SUCRALFATE 1 G/10 ML UDC PO SCH ×4 (09:16→21:51)
[2020-06-22] MEDS: PANTOPRAZOLE SODIUM 40 MG/VIAL IV SCH ×2 (09:16→18:26)
[2020-06-22] MEDS: ASCORBIC ACID 500 MG TABLET PO SCH ×2 (09:16→21:51)
[2020-06-22] MEDS: ZINC SULFATE 220 MG ( 50 ) CAPSULE PO SCH (09:16)
[2020-06-22] MEDS: FLUCONAZOLE 100MG TABLET PO SCH (09:16)
[2020-06-22] MEDS: SODIUM HYPOCHLORITE 0.125% 473ML SOLUTION TOP SCH (09:17)
[2020-06-22 10:09] LABS: BASOPHILS % 0.4 % (0.0-2.0); EOSINOPHILS % 0.2 % (0.0-5.0); HEMATOCRIT. 26.1 % (36.0-48.0); HEMOGLOBIN. 8.5 g/dL (12.0-16.0); MEAN CORPUSCULAR HEMOGLOBIN 24.7 pg (28.0-32.0); MEAN CORPUSCULAR VOLUME 75.9 fL (81.0-99.0); MEAN PLATELET VOLUME 8.3 fl (7.4-10.4); MONOCYTES % 2.6 % (2.0-8.0); NEUTROPHILS % 88.8 % (40.0-76.0); PLATELET 127 x1000/uL (130-400); RED BLOOD CELL COUNT 3.44 mill/uL (4.2-5.4); RED CELL DISTRIBUTION WIDTH 29.8 % (11.6-14.6)
[2020-06-22 10:14] LABS: CHLORIDE 104 mEq/L (98-107)
[2020-06-22] MEDS: APIXABAN 5 MG TABLET PO SCH ×2 (10:17→21:51)
[2020-06-22] MEDS ORDERED: POTASSIUM CHLORIDE 20MEQ/PACKET PO NR (11:00)
[2020-06-22] MEDS ORDERED: KCL 20MEQ/100ML PREMIX 100 ML IV SCH (13:00)
[2020-06-23] VITALS (62 sets, daily range): BP systolic 67–134; BP diastolic 38–98
[2020-06-23] MEDS: METOCLOPRAMIDE HCL 10MG/2ML VIAL IV SCH ×3 (05:01→17:30)
[2020-06-23] MEDS: MIDODRINE HCL 5MG TABLET PO SCH ×3 (05:04→21:07)
[2020-06-23] MEDS: CEFEPIME 2,000 MG in DEXT 5% WATER 100 ML IV SCH ×2 (05:05→17:30)
[2020-06-23] MEDS: PHENOL/SODIUM PHENOLATE 1.4% SRPAY 177ML MM SCH ×3 (05:08→18:00)
[2020-06-23] MEDS: VANCOMYCIN HCL 1000 MG/20 ML ORAL PO SCH ×2 (05:09→12:32)
[2020-06-23 06:16] LABS: CHLORIDE 107 mEq/L (98-107)
[2020-06-23] MEDS: METRONIDAZOLE 500 MG PREMIX 100 ML IV SCH ×2 (06:30→15:42)
[2020-06-23] MEDS: SUCRALFATE 1 G/10 ML UDC PO SCH ×4 (06:30→20:21)
[2020-06-23 06:48] LABS: PHOSPHORUS 0.4 mg/dL (2.5-4.9)
[2020-06-23 07:02] LABS: HEMATOCRIT. 25.1 % (36.0-48.0); HEMOGLOBIN. 7.7 g/dL (12.0-16.0); MEAN CORPUSCULAR HEMOGLOBIN 23.7 pg (28.0-32.0); MEAN CORPUSCULAR VOLUME 77.2 fL (81.0-99.0); MEAN PLATELET VOLUME 8.4 fl (7.4-10.4); PLATELET 84 x1000/uL (130-400); RED BLOOD CELL COUNT 3.25 mill/uL (4.2-5.4); RED CELL DISTRIBUTION WIDTH 29.2 % (11.6-14.6)
[2020-06-23] MEDS ORDERED: POTASSIUM PHOS,M-BASIC-D-BASIC 30 MMOL in DEXT 5% WATER 500 ML IV ONE (07:30)
[2020-06-23] MEDS: PANTOPRAZOLE SODIUM 40 MG/VIAL IV SCH ×2 (08:42→17:30)
[2020-06-23] MEDS: ASCORBIC ACID 500 MG TABLET PO SCH ×2 (08:42→20:21)
[2020-06-23] MEDS: ZINC SULFATE 220 MG ( 50 ) CAPSULE PO SCH (08:42)
[2020-06-23] MEDS: FLUCONAZOLE 100MG TABLET PO SCH (08:43)
[2020-06-23] MEDS: APIXABAN 5 MG TABLET PO SCH ×4 (08:43→21:07)
[2020-06-23] MEDS: SODIUM HYPOCHLORITE 0.125% 473ML SOLUTION TOP SCH (08:44)
[2020-06-23] MEDS ORDERED: POTASSIUM CHLORIDE 20MEQ/PACKET PO SCH (09:00)
[2020-06-23] MEDS ORDERED: SODIUM PHOS,M-BASIC-D-BASIC 30 MM in DEXT 5% WATER 500 ML IV NR (09:30)
[2020-06-23 10:00] LABS: NUCLEATED RED BLOOD CELLS 2 /100 WBC; PLATELET ESTIMATE DECREASED
[2020-06-23] MEDS ORDERED: ALBUMIN HUMAN 25GM/100ML (25%) IV NR (11:45)
[2020-06-23] MEDS ORDERED: ETOMIDATE 2MG/ML 10ML VIAL IV ONE (14:00)
[2020-06-23] MEDS ORDERED: SODIUM CHLORIDE 0.9% 10ML VIAL ONE (14:00)
[2020-06-23] MEDS ORDERED: VECURONIUM BROMIDE 10 MG/VIAL IV ONE (14:00)
[2020-06-23] MEDS ORDERED: MIDAZOLAM 100MG/100ML PMX 100 ML IV PRN (14:30)
[2020-06-23] MEDS ORDERED: FENTANYL CITRATE/PF 2,500 MCG in SODIUM CHLORIDE 0.9% 200 ML IV PRN (16:00)
[2020-06-23] MEDS ORDERED: MIDAZOLAM HCL 100 MG in SODIUM CHLORIDE 0.9% 100 ML IV PRN (16:00)
[2020-06-23 16:20] LABS: BG BASE EXCESS -17.1 mmol/L (-2.0-2.0); BG CARBOXYHEMOGLOBIN 0.3 % (0.5-1.5); BG DEOXYHEMOGLOBIN 0.7 % (0.0-5.0); BG FRACTION INSPIRED OXYGEN 80; BG HCO3 ACT 9.9 mmol/L (22.0-26.0); BG METHEMOGLOBIN 0.3 % (0.0-1.5); BG OXYGEN SATURATION 99.3 % (92.0-98.5); BG OXYHEMOGLOBIN 98.7 % (94.0-97.0); BG PCO2 27.2 mmHg (35.0-45.0); BG PH 7.177 (7.350-7.450); BG PO2 417.8 mmHg (75.0-100.0); BG SAMPLE SITE RIGHT RADIAL; BG TOTAL HEMOGLOBIN 8.4 g/dL (12.0-18.0); BG VENT MODE VENT - AC
[2020-06-23] MEDS: PHENYLEPHRINE 100 MG in DEXT 5% WATER 240 ML IV PRN (16:42)
[2020-06-23] MEDS ORDERED: SODIUM BICARBONATE 8.4% 1 MEQ/ML 50ML SYR IV SCH (16:45)
[2020-06-23] MEDS: SODIUM CHLORIDE 0.9% 1,000 ML IV SCH (17:30)
[2020-06-23] MEDS: SODIUM BICARBONATE 100 MEQ in DEXTROSE 5% WATER 1,000 ML IV SCH (20:16)
[2020-06-23] MEDS: NOREPINEPHRINE 8 MG in DEXT 5% WATER 242 ML IV PRN (20:17)
[2020-06-23] MEDS: VASOPRESSIN 20 UNIT in SODIUM CHLORIDE 0.9% 99 ML IV PRN (21:01)
[2020-06-24] VITALS (64 sets, daily range): BP systolic 56–217; BP diastolic 43–110
[2020-06-24] MEDS: METOCLOPRAMIDE HCL 10MG/2ML VIAL IV SCH ×4 (00:23→18:21)
[2020-06-24] MEDS: PHENYLEPHRINE 100 MG in DEXT 5% WATER 240 ML IV PRN ×4 (02:25→20:47)
[2020-06-24 02:33] LABS: HEMATOCRIT 22.6 % (36.0-48.0); HEMOGLOBIN 7.1 g/dL (12.0-16.0)
[2020-06-24] MEDS ORDERED: SODIUM HYPOCHLORITE 0.125% 473ML SOLUTION TOP PRN (03:00)
[2020-06-24] MEDS: NOREPINEPHRINE 8 MG in DEXT 5% WATER 242 ML IV PRN ×3 (04:10→14:42)
[2020-06-24] MEDS: VASOPRESSIN 20 UNIT in SODIUM CHLORIDE 0.9% 99 ML IV PRN ×3 (04:51→20:15)
[2020-06-24] MEDS: SUCRALFATE 1 G/10 ML UDC PO SCH ×4 (06:14→18:21)
[2020-06-24] MEDS: MIDODRINE HCL 5MG TABLET PO SCH ×3 (06:14→22:00)
[2020-06-24 07:29] LABS: CHLORIDE 103 mEq/L (98-107)
[2020-06-24 07:35] LABS: PHOSPHORUS 1.2 mg/dL (2.5-4.9)
[2020-06-24 07:54] LABS: MEAN CORPUSCULAR HEMOGLOBIN 24.6 pg (28.0-32.0); MEAN CORPUSCULAR VOLUME 81.1 fL (81.0-99.0); MEAN PLATELET VOLUME 8.1 fl (7.4-10.4); RED BLOOD CELL COUNT 2.64 mill/uL (4.2-5.4); RED CELL DISTRIBUTION WIDTH 28.1 % (11.6-14.6)
[2020-06-24 08:00] LABS: HEMOGLOBIN. 6.5 g/dL (12.0-16.0)
[2020-06-24 08:03] LABS: HEMATOCRIT. 21.4 % (36.0-48.0)
[2020-06-24 08:04] LABS: PLATELET 49 x1000/uL (130-400)
[2020-06-24] MEDS: ZINC SULFATE 220 MG ( 50 ) CAPSULE PO SCH (08:55)
[2020-06-24] MEDS: FLUCONAZOLE 100MG TABLET PO SCH (08:56)
[2020-06-24] MEDS: PANTOPRAZOLE SODIUM 40 MG/VIAL IV SCH ×2 (08:56→18:21)
[2020-06-24] MEDS: ASCORBIC ACID 500 MG TABLET PO SCH ×2 (08:56→21:00)
[2020-06-24 08:59] LABS: BG BASE EXCESS -15.9 mmol/L (-2.0-2.0); BG CARBOXYHEMOGLOBIN 0.7 % (0.5-1.5); BG DEOXYHEMOGLOBIN 0.6 % (0.0-5.0); BG FRACTION INSPIRED OXYGEN 40; BG HCO3 ACT 9.5 mmol/L (22.0-26.0); BG METHEMOGLOBIN 0.3 % (0.0-1.5); BG OXYGEN SATURATION 99.4 % (92.0-98.5); BG OXYHEMOGLOBIN 98.4 % (94.0-97.0); BG PCO2 21.5 mmHg (35.0-45.0); BG PH 7.265 (7.350-7.450); BG PO2 198.5 mmHg (75.0-100.0); BG SAMPLE SITE RIGHT RADIAL; BG TOTAL HEMOGLOBIN 6.8 g/dL (12.0-18.0); BG VENT MODE VENT - AC
[2020-06-24] MEDS: SODIUM HYPOCHLORITE 0.125% 473ML SOLUTION TOP SCH (09:00)
[2020-06-24] MEDS ORDERED: ALBUMIN HUMAN 12.5G/250ML (5%) IV ONE (10:15)
[2020-06-24] MEDS ORDERED: SODIUM CHLORIDE 0.9% 1000ML BAG (SEPSIS BOLUS) IV ONE (10:15)
[2020-06-24] MEDS ORDERED: SODIUM BICARBONATE 8.4% 1 MEQ/ML 50ML SYR IV SCH (11:15)
[2020-06-24] MEDS: PHENOL/SODIUM PHENOLATE 1.4% SRPAY 177ML MM SCH ×2 (12:00→18:00)
[2020-06-24] MEDS: SODIUM BICARBONATE 100 MEQ in DEXTROSE 5% WATER 1,000 ML IV SCH (12:32)
[2020-06-24] MEDS ORDERED: [UNRECOGNIZED DRUG - REMARK] XX SCH (13:15)
[2020-06-24] MEDS: METRONIDAZOLE 500 MG PREMIX 100 ML IV SCH (14:47)
[2020-06-24] MEDS: CEFEPIME 2,000 MG in DEXT 5% WATER 100 ML IV SCH (14:48)
[2020-06-24] MEDS ORDERED: VANCOMYCIN 1 G PREMIX 200 ML IV NR (16:00)
[2020-06-24 16:27] LABS: NUCLEATED RED BLOOD CELLS 2 /100 WBC
[2020-06-24 16:28] LABS: PLATELET ESTIMATE DECREASED
[2020-06-24] MEDS: VANCOMYCIN HCL 1000 MG/20 ML ORAL PO SCH (18:00)
[2020-06-24] MEDS: NOREPINEPHRINE 32 MG in DEXT 5% WATER 218 ML IV PRN ×2 (18:11→23:52)
[2020-06-24 19:50] LABS: HEMATOCRIT 17.2 % (36.0-48.0); HEMOGLOBIN 4.9 g/dL (12.0-16.0)
[2020-06-24 21:00] LABS: D-DIMER 0.32 mg/L FEU (<0.50); FIBRINOGEN 106 mg/dL (200-400); PROTHROMBIN TIME > 100.0 sec (9.6-11.0)
[2020-06-24 21:03] LABS: INR > 10.0
[2020-06-24] MEDS ORDERED: SODIUM BICARBONATE 8.4% 1 MEQ/ML 50ML SYR IV NR (21:15)
[2020-06-24] MEDS: EPINEPHRINE 5 MG in SODIUM CHLORIDE 0.9% 245 ML IV PRN ×2 (21:42→22:28)
[2020-06-24] MEDS: EPINEPHRINE 20 MG in SODIUM CHLORIDE 0.9% 480 ML IV PRN (23:43)
[2020-06-25] VITALS (10 sets, daily range): BP systolic 45–101; BP diastolic 28–66
[2020-06-25] MEDS ORDERED: PHYTONADIONE 10 MG in DEXTROSE 5% WATER 49 ML IV SCH
[2020-06-25] MEDS: SUCRALFATE 1 G/10 ML UDC PO SCH ×2 (00:45→06:45)
[2020-06-25] MEDS: EPINEPHRINE 20 MG in SODIUM CHLORIDE 0.9% 480 ML IV PRN ×3 (02:34→08:31)
[2020-06-25] MEDS: PHENYLEPHRINE 100 MG in DEXT 5% WATER 240 ML IV PRN ×2 (02:53→10:04)
[2020-06-25] MEDS: VASOPRESSIN 20 UNIT in SODIUM CHLORIDE 0.9% 99 ML IV PRN (04:52)
[2020-06-25] MEDS: METRONIDAZOLE 500 MG PREMIX 100 ML IV SCH (05:35)
[2020-06-25] MEDS: PHENOL/SODIUM PHENOLATE 1.4% SRPAY 177ML MM SCH ×2 (06:00)
[2020-06-25] MEDS: VANCOMYCIN HCL 1000 MG/20 ML ORAL PO SCH ×2 (06:00)
[2020-06-25] MEDS: MIDODRINE HCL 5MG TABLET PO SCH (06:00)
[2020-06-25] MEDS: NOREPINEPHRINE 32 MG in DEXT 5% WATER 218 ML IV PRN ×2 (06:03→12:01)
[2020-06-25] MEDS: METOCLOPRAMIDE HCL 10MG/2ML VIAL IV SCH ×3 (06:14→11:49)
[2020-06-25] MEDS: CEFEPIME 2,000 MG in DEXT 5% WATER 100 ML IV SCH (06:17)
[2020-06-25 08:20] LABS: CHLORIDE 100 mEq/L (98-107)
[2020-06-25 08:25] LABS: MEAN CORPUSCULAR HEMOGLOBIN 30.1 pg (28.0-32.0); MEAN CORPUSCULAR VOLUME 108.6 fL (81.0-99.0); RED BLOOD CELL COUNT 0.57 mill/uL (4.2-5.4); RED CELL DISTRIBUTION WIDTH 19.2 % (11.6-14.6)
[2020-06-25 08:37] LABS: HEMATOCRIT. 6.2 % (36.0-48.0); HEMOGLOBIN. 1.7 g/dL (12.0-16.0); PLATELET 46 x1000/uL (130-400)
[2020-06-25] MEDS ORDERED: SODIUM BICARBONATE 8.4% 1 MEQ/ML 50ML SYR IV SCH (08:45)
[2020-06-25] MEDS: ASCORBIC ACID 500 MG TABLET PO SCH (09:00)
[2020-06-25] MEDS ORDERED: DEXTROSE 50% WATER 50ML SYRINGE IV SCH (09:00)
[2020-06-25] MEDS ORDERED: PHYTONADIONE 10MG/ML AMP SUBCUT SCH (09:00)
[2020-06-25] MEDS: ZINC SULFATE 220 MG ( 50 ) CAPSULE PO SCH (09:00)
[2020-06-25] MEDS ORDERED: INSULIN REGULAR (HUMULIN R) 300UNITS/3ML VIAL IV SCH (09:00)
[2020-06-25] MEDS: FLUCONAZOLE 100MG TABLET PO SCH (09:00)
[2020-06-25] MEDS: SODIUM HYPOCHLORITE 0.125% 473ML SOLUTION TOP SCH (09:00)
[2020-06-25] MEDS ORDERED: DOPAMINE 800MG PREMIX (DOUBLE) 250 ML IV ONE (09:25)
[2020-06-25] MEDS ORDERED: DOPAMINE 800MG PREMIX (DOUBLE) 250 ML IV PRN (09:30)
[2020-06-25 09:59] LABS: NUCLEATED RED BLOOD CELLS 12 /100 WBC
[2020-06-25 10:00] LABS: PLATELET ESTIMATE MARKEDLY DECREASED
[2020-06-25] MEDS ORDERED: CALCIUM CHLORIDE 1,000 MG in DEXT 5% WATER 90 ML IV SCH (10:00)
[2020-06-25] MEDS ORDERED: DEXTROSE 50% WATER 50ML SYRINGE IV ONE (11:42)
[2020-06-25] MEDS ORDERED: CALCIUM CHLORIDE 1GM/10ML SYR IV ONE (11:42)
[2020-06-25] MEDS ORDERED: EPINEPHRINE 0.1MG/ML (1:10,000) 10ML SYR ONE (11:42)
[2020-06-25] MEDS ORDERED: ATROPINE SULFATE 1MG/10ML SYR ONE (11:42)
[2020-06-25] MEDS ORDERED: SODIUM BICARBONATE 8.4% MEQ/ML 50ML VIAL IV ONE (11:42)
[2020-06-25] MEDS: PANTOPRAZOLE SODIUM 40 MG/VIAL IV SCH (11:49)
== END 2020-06-25 14:08 | disposition expired | DRG 720 ==
LOC: ER 07:01 → 5EST 10:54 → EDBEDREQTM 11:00 → EDBEDREQ 11:00 → EDBEDREQSVC 12:25 → ENRESERV 12:54 → 5EST 17:41 → MICUNO 06-23 14:47
PROVIDERS: ADMIT Internal Medicine; ATTEND Internal Medicine
PROC: 02HV33Z Insertion of Infusion Device into Superior Vena Cava, Percutaneous Approach (ICD-10-PCS; 2020-06-12)
PROC: B548ZZA Ultrasonography of Superior Vena Cava, Guidance (ICD-10-PCS; 2020-06-12)
PROC: 5A1945Z Respiratory Ventilation, 24-96 Consecutive Hours (ICD-10-PCS; principal; 2020-06-23)
PROC: 0BH17EZ Insertion of Endotracheal Airway into Trachea, Via Natural or Artificial Opening (ICD-10-PCS; 2020-06-23)
PROC: 30233M1 Transfusion of Nonautologous Plasma Cryoprecipitate into Peripheral Vein, Percutaneous Approach (ICD-10-PCS; 2020-06-25)
PROC: 30233N1 Transfusion of Nonautologous Red Blood Cells into Peripheral Vein, Percutaneous Approach (ICD-10-PCS; 2020-06-25)
PROC: 30233R1 Transfusion of Nonautologous Platelets into Peripheral Vein, Percutaneous Approach (ICD-10-PCS; 2020-06-25)
DX: A41.52 Sepsis due to Pseudomonas (principal); E43 Unspecified severe protein-calorie malnutrition; J96.01 Acute respiratory failure with hypoxia; E83.51 Hypocalcemia; E87.1 Hypo-osmolality and hyponatremia; G92 Toxic encephalopathy; J18.9 Pneumonia, unspecified organism; N39.0 Urinary tract infection, site not specified; L89.154 Pressure ulcer of sacral region, stage 4; I82.412 Acute embolism and thrombosis of left femoral vein; R65.21 Severe sepsis with septic shock; R13.10 Dysphagia, unspecified; K52.9 Noninfective gastroenteritis and colitis, unspecified; I50.23 Acute on chronic systolic (congestive) heart failure; E87.6 Hypokalemia; E87.2 Acidosis; G35 Multiple sclerosis; F12.90 Cannabis use, unspecified, uncomplicated; L89.894 Pressure ulcer of other site, stage 4; S90.822A Blister (nonthermal), left foot, initial encounter; X58.XXXA Exposure to other specified factors, initial encounter; I26.99 Other pulmonary embolism without acute cor pulmonale; J98.2 Interstitial emphysema; K44.9 Diaphragmatic hernia without obstruction or gangrene; K22.2 Esophageal obstruction; K76.0 Fatty (change of) liver, not elsewhere classified; I82.422 Acute embolism and thrombosis of left iliac vein; D50.9 Iron deficiency anemia, unspecified; D63.8 Anemia in other chronic diseases classified elsewhere; D65 Disseminated intravascular coagulation [defibrination syndrome]; I42.0 Dilated cardiomyopathy; M46.28 Osteomyelitis of vertebra, sacral and sacrococcygeal region; Z66 Do not resuscitate; N32.89 Other specified disorders of bladder; I87.1 Compression of vein; I11.0 Hypertensive heart disease with heart failure; Z88.6 Allergy status to analgesic agent; Z79.899 Other long term (current) drug therapy; Z93.3 Colostomy status; Z68.35 Body mass index [BMI] 35.0-35.9, adult; Y93.89 Activity, other specified; Y92.89 Other specified places as the place of occurrence of the external cause; Y99.8 Other external cause status; Z22.322 Carrier or suspected carrier of Methicillin resistant Staphylococcus aureus; Z79.01 Long term (current) use of anticoagulants
CPT/HCPCS: 31500; 36415; 36600; 70491; 71045; 71260; 72195; 74018; 74160; 74178; 76937; 80048; 80053; 80061; 80202; 80305; 81003; 82040; 82270; 82375; 82550; 82553; 82607; 82728; 82746; 82805; 82962; 83036; 83540; 83550; 83605; 83735; 84100; 84132; 84134; 84145; 84484; 84703; 85014; 85018; 85025; 85379; 85384; 85651; 86140; 86850; 86900; 86920; 86927; 87077; 87106; 87186; 92610; 93005; 93306; 93970; 94002; 94003; 99285; C1725; C9113; J0461; J0692; J1265; J1450; J1650; J2370; J2543; J2765; J3010; J3370; J3430; J3480; J3490; J7030; J7040; J7050; J7060; J7070; P9016; P9017; P9034; P9041; P9047; Q9967